=== PATIENT | male | born 1975 | race Caucasian/White ===

== ENCOUNTER 2018-12-29 12:15 | Emergency (ER) | payer SELFPAY ==
[~2018-12-29] VITALS: Ht 167.6 cm; Wt 95.3 kg
[2018-12-29 12:35] VITALS: BP 167/99
--- NOTE | 2018-12-29 12:43 | NUR ---
accompanied by ---- pt took b/p at home 190/110--has been feeling fatigued with diplopia, nausea, tired x 2 wks worse yesterday no facial asymmetry, full clear speech, equal [employer], steady gait, no drift no pedal edema noted
[2018-12-29] MEDS ORDERED: NACL 0.9% 1,000 ML IV ONE ×4 (13:05→16:35)
--- NOTE | 2018-12-29 13:12 | NUR ---
labs drawn and handed to lab
[2018-12-29 13:18] LABS: BASOPHILS % (AUTO) 0.8 % (0.0-2.0); EOSINOPHILS # (AUTO) 0.1 K/uL (0-0.4); EOSINOPHILS % (AUTO) 1.9 % (0.0-4.0); HEMATOCRIT 45.9 % (36-52); HEMOGLOBIN 15.7 g/dL (12.0-18.0); LYMPHOCYTES # (AUTO) 1.3 K/uL (2.0-11.5); LYMPHOCYTES % (AUTO) 21.6 % (20.5-51.1); MEAN CORPUSCULAR HEMOGLOBIN 31 pg (27-31); MEAN CORPUSCULAR HGB CONC 34 g/dL (33-37); MONOCYTES # (AUTO) 0.3 K/uL (0.8-1.0); MONOCYTES % (AUTO) 4.3 % (1.7-9.3); NEUTROPHILS # (AUTO) 4.4 K/uL (1.8-7.7); NEUTROPHILS % (AUTO) 71.4 % (42.2-75.2); PLATELET COUNT (AUTO) 241 K/uL (140-450); RED CELL DISTRIBUTION WIDTH 12.6 % (11.6-13.7); WHITE BLOOD COUNT (AUTO) 6.2 K/uL (4.8-10.8)
[2018-12-29 13:21] LABS: APPEARANCE,URINE CLEAR (CLEAR); BILIRUBIN,URINE NEGATIVE (NEGATIVE); BLOOD, URINE TRACE-I (NEGATIVE); COLOR,URINE YELLOW (YELLOW); LEUKOCYTE ESTERASE ,URINE NEGATIVE (NEGATIVE); NITRITE, URINE NEGATIVE (NEGATIVE); PH,URINE 7.5 (5.0-9.0); UGLUCOSE 3+ (NEGATIVE)
[2018-12-29 13:34] LABS: ANION GAP 15.3 (8-16); CARBON DIOXIDE 26.1 mmol/L (21-32); CREATININE 1.7 mg/dL (0.7-1.3); POTASSIUM 5.4 mmol/L (3.5-5.1); TOTAL BILIRUBIN 0.7 mg/dL (0.0-1.0)
[2018-12-29 13:49] LABS: RBC,URINE 0-5 /HPF (0-5); WBC,URINE 0-5 /HPF (0-5)
[2018-12-29] MEDS ORDERED: INSULIN REGULAR, HUMAN 100 UNIT/ML VIAL IVP ONE (14:00)
[2018-12-29] MEDS ORDERED: metFORMIN 500 MG TAB PO STA (14:47)
--- NOTE | 2018-12-29 17:43 | NUR ---
Patient discharged with v/s stable. Written and verbal after care instructions given and explained. Patient alert, oriented and verbalized understanding of instructions. Ambulatory with steady gait. All questions addressed prior to discharge. ID band removed. Patient advised to follow up with PMD. Rx of metformin given. Patient educated on indication of medication including possible reaction and side effects. Opportunity to ask questions provided and answered.
[2018-12-29 17:44] VITALS: BP 116/78
== END 2018-12-29 17:43 | disposition home or self-care (01) ==
LOC: MED 12:15
DX: E11.65 Type 2 diabetes mellitus with hyperglycemia (principal); I10 Essential (primary) hypertension; E86.0 Dehydration
CPT/HCPCS: 36415; 80053; 81001; 82948; 83690; 85025; 93005; 96361; 96374; 99284; J1815; J7030

== ENCOUNTER 2020-10-16 07:45 | Emergency (ER) | payer OTHER ==
[~2020-10-16] VITALS: Ht 165.1 cm; Wt 95.3 kg
[2020-10-16 07:57] VITALS: BP 161/94
[2020-10-16] MEDS ORDERED: ONDA4TAB PO (08:40)
[2020-10-16] MEDS ORDERED: FAMO-90 PO (08:42)
[2020-10-16 08:50] VITALS: BP 161/94
== END 2020-10-16 08:51 | disposition home or self-care (01) ==
LOC: MED 07:45
DX: K29.70 Gastritis, unspecified, without bleeding (principal); E11.9 Type 2 diabetes mellitus without complications; I10 Essential (primary) hypertension; F12.10 Cannabis abuse, uncomplicated
CPT/HCPCS: 99283